=== PATIENT | female | born 1970 | race Caucasian/White ===

== ENCOUNTER 2021-05-17 09:20 | Day surgery (SDC) | payer OTHER ==
[2021-05-16 15:24] VITALS: BMI 27.9
[2021-05-17 10:05] VITALS: TEMP 97.8
[2021-05-17] MEDS ORDERED: Acetaminophen 500 MG TAB ONE (11:30)
[2021-05-17] MEDS ORDERED: Losartan 25 MG TAB PO SCH (11:45)
[2021-05-17] MEDS ORDERED: Acetaminophen 500 MG TAB PO SCH (12:00)
[2021-05-17 12:06] LABS: Color Of CSF Supernatant COLORLESS (Colorless); Tube # 1; Unspun CSF Color COLORLESS (Colorless)
[2021-05-17 12:11] LABS: CSF Source CSF; Clarity Clear (Clear)
[2021-05-17 12:12] LABS: CSF RBC Count - Manual 51 /cu.mm (None Seen); CSF WBC/NonHematics Count-Man 0 /cu.mm (0-5)
[2021-05-17 12:14] LABS: Tube # 3
[2021-05-17 12:21] LABS: CSF, Glucose 66 mg/dl (40-70); CSF, Protein 32 mg/dL (15-40)
[2021-05-17 12:37] VITALS: BP 163/97
[2021-05-17 13:31] LABS: Reference Lab Name LABCORP
[2021-05-17 13:32] LABS: Ref Lab Test Ordered IGG INDEX CSF
[2021-05-17 13:33] LABS: Ref Lab Test Ordered LYME WB CSF; Reference Lab Name LABCORP
[2021-05-18 12:14] LABS: Albumin, Fluid Less than 0.2 g/dL (Not Estab.)
[2021-05-22 16:12] LABS: VDRL, CSF Non Reactive (Non Rea:<1:1)
== END 2021-05-17 12:28 | disposition home or self-care (01) ==
LOC: RAD 09:20
PROVIDERS: ATTEND Psychiatry & Neurology Neurology
PROC: 009U3ZX Drainage of Spinal Canal, Percutaneous Approach, Diagnostic (ICD-10-PCS; principal; 2021-05-17)
DX: R26.81 Unsteadiness on feet (principal); G61.81 Chronic inflammatory demyelinating polyneuritis; M54.18 Radiculopathy, sacral and sacrococcygeal region; I10 Essential (primary) hypertension; F17.210 Nicotine dependence, cigarettes, uncomplicated; F17.290 Nicotine dependence, other tobacco product, uncomplicated; M47.816 Spondylosis without myelopathy or radiculopathy, lumbar region; M48.061 Spinal stenosis, lumbar region without neurogenic claudication; M48.07 Spinal stenosis, lumbosacral region; Z79.899 Other long term (current) drug therapy; Z88.0 Allergy status to penicillin; Z88.1 Allergy status to other antibiotic agents; Z91.018 Allergy to other foods
CPT/HCPCS: 62270; 82042; 82945; 84157; 86592; 87529; 88112; 89051

== ENCOUNTER → 2023-02-21 | Day surgery (SDC) | payer OTHER | LOC: ENDO/OP 13:28 | PROVIDERS: ATTEND Surgery | DX: K21.9 Gastro-esophageal reflux disease without esophagitis (principal); K44.9 Diaphragmatic hernia without obstruction or gangrene; I10 Essential (primary) hypertension; F17.210 Nicotine dependence, cigarettes, uncomplicated; Z88.0 Allergy status to penicillin; Z88.1 Allergy status to other antibiotic agents; Z91.018 Allergy to other foods; Z91.030 Bee allergy status; Z90.89 Acquired absence of other organs; Z79.899 Other long term (current) drug therapy | CPT/HCPCS: 91010 ==

== ENCOUNTER 2023-03-01 15:03 | Outpatient (CLI) | payer OTHER ==
[2023-03-01 16:19] LABS: #Basophils 0.1 10x3/uL (0.0-0.2); #Eosinphils 0.3 10x3/uL (0.0-0.5); #Monocytes 0.3 10x3/uL (0.0-1.1); #Neutrophils 2.9 10x3/uL (1.5-8.4); %Basophils 0.9 % (0.0-2.0); %Eosinophils 4.8 % (0.0-6.0); %Lymphocytes 34.7 % (18.0-47.0); %Monocytes 6.2 % (0.0-10.0); %Neutrophils 53.2 % (40.0-75.0); Hemoglobin 9.9 g/dL (12.0-15.5); Mean Corpuscular HGB CONC 30.9 g/dL (32.0-36.0); Mean Corpuscular Hemoglobin 24.5 pg (27.0-33.0); Mean Corpuscular Volume 79.2 fl (81.6-98.3); Mean Platelet Volume 10.4 fl (7.4-10.4); Platelet Count 293 10x3/uL (150-450); RBC Distribution Width 18.6 % (11.5-14.5); Red Blood Cell (RBC) Count 4.04 10x6/uL (3.90-5.03); White Blood Cell (WBC) Count 5.5 10x3/uL (3.5-10.5)
[2023-03-01 16:34] LABS: ALT (SGPT) 11 U/L (8-55); AST (SGOT) 13 U/L (5-34); Albumin 4.2 g/dL (3.5-5.0); Alkaline Phosphatase 127 U/L (40-110); Anion Gap 14 mmol/L (10-20); BUN (Urea Nitrogen) 13 mg/dL (9.8-20.1); Bilirubin, Total Less than 0.2 mg/dL (0.2-1.2); Calc. Creatinine Clearance 0 mL/min (70-130); Calcium 9.5 mg/dL (7.8-10.44); Carbon Dioxide 23 mmol/L (22-29); Estimated GFR 66; Glucose 116 mg/dL (70-105); Potassium 4.2 mmol/L (3.5-5.1); Protein, Total 7.2 g/dL (6.0-8.3); Sodium 142 mmol/L (136-145)
[2023-03-01 16:52] LABS: Chloride 109 mmol/L (98-107)
== END 2023-03-01 15:04 | disposition home or self-care (01) ==
LOC: LABBT 15:03
PROVIDERS: ATTEND Surgery
DX: Z01.818 Encounter for other preprocedural examination (principal); K44.9 Diaphragmatic hernia without obstruction or gangrene; K21.9 Gastro-esophageal reflux disease without esophagitis
CPT/HCPCS: 80053; 85025; 93005; 93010

== ENCOUNTER 2023-04-05 13:07 | Outpatient (CLI) | payer OTHER | END 2023-04-05 13:08 | disposition home or self-care (01) | LOC: NM 13:07 | PROVIDERS: ATTEND Registered Nurse Hospice | DX: M48.062 Spinal stenosis, lumbar region with neurogenic claudication (principal); R10.11 Right upper quadrant pain; M47.816 Spondylosis without myelopathy or radiculopathy, lumbar region; M43.16 Spondylolisthesis, lumbar region | CPT/HCPCS: 72120; 78226; A9537 ==

== ENCOUNTER 2025-03-03 15:59 | Outpatient (CLI) | payer OTHER ==
[2025-03-03 16:52] LABS: #Basophils 0.04 10x3/uL (0.0-0.2); #Eosinophils 0.45 10x3/uL (0.0-0.7); #Monocytes 0.46 10x3/uL (0.11-0.59); #Neutrophils 3.36 10x3/uL (1.40-6.50); %Basophils 0.6 % (0.0-1.0); %Eosinophils 6.8 % (0.0-10.0); %Lymphocytes 34.8 % (21.0-51.0); %Monocytes 6.9 % (0.0-10.0); %Neutrophils 50.6 % (42.0-75.0); Hematocrit 41.8 % (36.0-47.0); Hemoglobin 13.1 g/dL (12.0-16.0); Mean Corpuscular Hemoglobin 29.0 pg (27.0-31.0); Mean Corpuscular Volume 92.5 fL (78.0-98.0); Platelet Count 226 10x3/uL (130-400); Red Blood Cell (RBC) Count 4.52 mill/uL (4.20-5.40); White Blood Cell (WBC) Count 6.64 10x3/uL (4.8-10.8)
[2025-03-03 17:07] LABS: Anion Gap 14 mmol/L (10-20); BUN (Urea Nitrogen) 12 mg/dL (9.8-20.1); Calc. Creatinine Clearance 0 mL/min (70-130); Calcium 9.7 mg/dL (7.8-10.44); Carbon Dioxide 24 mmol/L (22-29); Chloride 106 mmol/L (98-107); Glucose 98 mg/dL (70-105); Potassium 4.9 mmol/L (3.5-5.1); Sodium 139 mmol/L (136-145)
== END 2025-03-03 16:00 | disposition home or self-care (01) ==
LOC: LABBT 15:59
PROVIDERS: ATTEND Surgery
DX: Z01.818 Encounter for other preprocedural examination (principal); K44.9 Diaphragmatic hernia without obstruction or gangrene; K21.00 Gastro-esophageal reflux disease with esophagitis, without bleeding
CPT/HCPCS: 80048; 85025; 93005; 93010